=== PATIENT | female | born 1945 | race Caucasian/White ===

== ENCOUNTER 2023-07-15 14:05 | Inpatient (IN) | payer MEDICARE, OTHER ==
[~2023-07-15] VITALS: Ht 165.1 cm; Wt 58.5 kg
[2023-07-15 14:56] LABS: BASOPHILS % (AUTO) 0.4 % (0.0-2.0); EOSINOPHILS # (AUTO) 0.2 K/uL (0.0-0.7); EOSINOPHILS % (AUTO) 2.2 % (0.0-7.0); HEMATOCRIT 35.9 % (31.2-41.9); HEMOGLOBIN 11.7 g/dL (10.9-14.3); LYMPHOCYTES # (AUTO) 1.2 K/uL (0.8-4.8); LYMPHOCYTES % (AUTO) 17.2 % (20.5-51.5); MEAN CORPUSCULAR HEMOGLOBIN 30.1 uug (24.7-32.8); MEAN CORPUSCULAR HGB CONC 33 g/dL (32.3-35.6); MEAN CORPUSCULAR VOLUME 91.7 fL (75.5-95.3); MONOCYTES # (AUTO) 0.9 K/uL (0.1-1.30); MONOCYTES % (AUTO) 12.9 % (0.0-11.0); NEUTROPHILS # (AUTO) 4.8 K/uL (1.8-8.9); NEUTROPHILS % (AUTO) 67.3 % (38.5-71.5); PLATELET COUNT (AUTO) 224 K/uL (179-408); RED BLOOD CELL COUNT(AUTO) 3.91 MIL/uL (3.63-4.92); WHITE BLOOD COUNT (AUTO) 7.1 K/uL (3.8-11.8)
[2023-07-15 15:10] LABS: AMMONIA < 10 umol/L (11-32); ETHANOL < 3 MG/DL (0-10)
[2023-07-15 15:16] LABS: DIFFERENTIAL COMMENT 1
[2023-07-15 15:21] LABS: CALCIUM 8.8 mg/dL (8.5-10.1); CARBON DIOXIDE 28 mmol/L (21-32); CHLORIDE 104 mmol/L (98-107); CREATININE 0.7 mg/dL (0.6-1.3); GLUCOSE 94 mg/dL (74-106); POTASSIUM 4.2 mmol/L (3.5-5.1); SODIUM SERUM 141 mmol/L (136-145); UREA NITROGEN, BLOOD 20 mg/dL (7-18)
[2023-07-15 15:29] LABS: ALANINE AMINOTRANSFERASE 26 U/L (14-59); ALBUMIN 3.4 g/dL (3.4-5.0); ALKALINE PHOSPHATASE 77 U/L (50-136); ASPARTATE AMINOTRANSFERASE 13 U/L (15-37); BILIRUBIN,DIRECT 0.1 mg/dL (0.0-0.2); BILIRUBIN,TOTAL 0.3 mg/dL (0.2-1.0); TOTAL PROTEIN, SERUM 7.2 g/dL (6.4-8.2)
[2023-07-15] MEDS ORDERED: MAGNESIUM HYDROXIDE 30 ML LIQUID UDC PO PRN (17:30)
[2023-07-15] MEDS ORDERED: MAG HYDROX/AL HYDROX/SIMETH 30 ML LIQUID UDC PO PRN (17:30)
[2023-07-15] MEDS ORDERED: LORAZEPAM 0.5 MG TABLET PO PRN (17:30)
[2023-07-15 17:48] VITALS: BP 162/112; TEMP 98.2; O2SAT 98
[2023-07-15 20:00] VITALS: BP 144/88; TEMP 98.6; O2SAT 95
[2023-07-16 07:44] VITALS: BP 136/72; TEMP 98; O2SAT 98
[2023-07-16] MEDS: NICOTINE 21 MG/24HR PATCH TD SCH (08:41)
[2023-07-16 08:42] LABS: ALANINE AMINOTRANSFERASE 24 U/L (14-59); ALBUMIN 3.4 g/dL (3.4-5.0); ALKALINE PHOSPHATASE 80 U/L (50-136); ASPARTATE AMINOTRANSFERASE 13 U/L (15-37); BILIRUBIN,TOTAL 0.5 mg/dL (0.2-1.0); CALCIUM 8.5 mg/dL (8.5-10.1); CARBON DIOXIDE 29 mmol/L (21-32); CHLORIDE 104 mmol/L (98-107); CREATININE 0.8 mg/dL (0.6-1.3); GLUCOSE 88 mg/dL (74-106); SODIUM SERUM 141 mmol/L (136-145); TOTAL PROTEIN, SERUM 7.2 g/dL (6.4-8.2); UREA NITROGEN, BLOOD 17 mg/dL (7-18)
[2023-07-16] MEDS: risperiDONE 0.5 MG TABLET PO SCH ×2 (11:40→21:13)
[2023-07-16] MEDS: DIVALPROEX SPRINKLE 125 MG CAP.SPRINK PO SCH ×2 (12:18→16:42)
[2023-07-16 13:19] LABS: THYROID STIMULATING HORMONE 1.398 mIU/mL (0.358-3.740)
[2023-07-16 15:09] VITALS: BP 118/86; TEMP 98; O2SAT 98
[2023-07-16 20:13] VITALS: BP 134/76; TEMP 98.1; O2SAT 98
[2023-07-16] MEDS: REMEDY ESSENTIAL ZINC PASTE 113 GM TOP SCH (21:13)
[2023-07-17 08:06] VITALS: BP 114/72; TEMP 98.2; O2SAT 94
[2023-07-17] MEDS: risperiDONE 0.5 MG TABLET PO SCH (09:56)
[2023-07-17] MEDS: NICOTINE 21 MG/24HR PATCH TD SCH (09:56)
[2023-07-17] MEDS: DIVALPROEX SPRINKLE 125 MG CAP.SPRINK PO SCH ×3 (09:56→17:51)
[2023-07-17] MEDS: REMEDY ESSENTIAL ZINC PASTE 113 GM TOP SCH ×2 (09:57→21:07)
[2023-07-17 10:50] VITALS: BP 138/89; O2SAT 99
[2023-07-17 16:00] VITALS: BP 121/86; TEMP 98.6; O2SAT 100
[2023-07-17] MEDS: risperiDONE 1 MG TABLET PO SCH (21:06)
[2023-07-18 07:30] VITALS: BP 141/69; TEMP 97.7; O2SAT 97
[2023-07-18] MEDS: DIVALPROEX SPRINKLE 125 MG CAP.SPRINK PO SCH ×3 (09:02→16:57)
[2023-07-18] MEDS: risperiDONE 0.5 MG TABLET PO SCH (09:02)
[2023-07-18] MEDS: NICOTINE 21 MG/24HR PATCH TD SCH (09:03)
[2023-07-18] MEDS: REMEDY ESSENTIAL ZINC PASTE 113 GM TOP SCH ×2 (09:03→21:07)
[2023-07-18 15:51] VITALS: BP 119/78; TEMP 97.7; O2SAT 97
[2023-07-18 20:00] VITALS: BP 121/79; TEMP 98.3; O2SAT 97
[2023-07-18] MEDS: risperiDONE 1 MG TABLET PO SCH (21:10)
[2023-07-18] MEDS: LORAZEPAM 0.5 MG TABLET PO PRN (23:58)
[2023-07-19 07:30] VITALS: BP 151/87; TEMP 98.2; O2SAT 98
[2023-07-19] MEDS: NICOTINE 21 MG/24HR PATCH TD SCH (08:23)
[2023-07-19] MEDS: REMEDY ESSENTIAL ZINC PASTE 113 GM TOP SCH ×2 (08:23→20:05)
[2023-07-19] MEDS: risperiDONE 0.5 MG TABLET PO SCH (08:23)
[2023-07-19] MEDS: DIVALPROEX SPRINKLE 125 MG CAP.SPRINK PO SCH ×3 (08:25→16:23)
[2023-07-19] MEDS: LORAZEPAM 0.5 MG TABLET PO PRN ×2 (10:16→20:03)
[2023-07-19 16:00] VITALS: BP 133/88; TEMP 98; O2SAT 96
[2023-07-19] MEDS: risperiDONE 1 MG TABLET PO SCH ×2 (16:27→20:04)
[2023-07-19 20:00] VITALS: BP 131/79; TEMP 97.9; O2SAT 98
[2023-07-19] MEDS: ZOLPIDEM 5 MG TABLET PO PRN (23:29)
[2023-07-20] MEDS: LORAZEPAM 0.5 MG TABLET PO PRN ×2 (06:03→20:01)
[2023-07-20] MEDS ORDERED: risperiDONE 0.5 MG TABLET PO SCH (08:00)
[2023-07-20 08:12] VITALS: BP 130/88; TEMP 98; O2SAT 99
[2023-07-20] MEDS: NICOTINE 21 MG/24HR PATCH TD SCH (08:40)
[2023-07-20] MEDS: risperiDONE 1 MG TABLET PO SCH ×4 (08:40→20:01)
[2023-07-20] MEDS: DIVALPROEX SPRINKLE 125 MG CAP.SPRINK PO SCH ×4 (08:40→20:01)
[2023-07-20] MEDS: REMEDY ESSENTIAL ZINC PASTE 113 GM TOP SCH ×2 (08:41→20:02)
[2023-07-20 16:06] VITALS: BP 128/80; TEMP 98.3; O2SAT 98
[2023-07-20 20:00] VITALS: BP 140/83; TEMP 98; O2SAT 98
[2023-07-20] MEDS: ZOLPIDEM 5 MG TABLET PO PRN (22:36)
[2023-07-21] MEDS: LORAZEPAM 0.5 MG TABLET PO PRN ×2 (04:45→10:58)
[2023-07-21 08:04] VITALS: BP 118/66; TEMP 98.1; O2SAT 98
[2023-07-21] MEDS: risperiDONE 1 MG TABLET PO SCH ×4 (08:16→20:34)
[2023-07-21] MEDS: REMEDY ESSENTIAL ZINC PASTE 113 GM TOP SCH ×2 (08:16→20:32)
[2023-07-21] MEDS: NICOTINE 21 MG/24HR PATCH TD SCH (08:16)
[2023-07-21] MEDS: DIVALPROEX SPRINKLE 125 MG CAP.SPRINK PO SCH ×4 (08:16→20:33)
[2023-07-21 16:30] VITALS: BP 160/91; TEMP 98; O2SAT 99
[2023-07-21 19:54] VITALS: BP 136/69; TEMP 98.1; O2SAT 96
[2023-07-21] MEDS: ZOLPIDEM 5 MG TABLET PO PRN (21:59)
[2023-07-22] MEDS: LORAZEPAM 0.5 MG TABLET PO PRN (03:30)
[2023-07-22 07:53] VITALS: BP 139/82; TEMP 98; O2SAT 97
[2023-07-22] MEDS: NICOTINE 21 MG/24HR PATCH TD SCH (08:31)
[2023-07-22] MEDS: REMEDY ESSENTIAL ZINC PASTE 113 GM TOP SCH ×2 (08:32→20:42)
[2023-07-22] MEDS: DIVALPROEX SPRINKLE 125 MG CAP.SPRINK PO SCH ×4 (08:32→20:41)
[2023-07-22] MEDS: risperiDONE 1 MG TABLET PO SCH ×3 (08:32→17:48)
[2023-07-22 16:12] VITALS: BP 148/79; TEMP 98; O2SAT 98
[2023-07-22 19:52] VITALS: BP 165/80; TEMP 98.1; O2SAT 96
[2023-07-22] MEDS: risperiDONE 2 MG TABLET PO SCH (20:41)
[2023-07-22] MEDS ORDERED: risperiDONE 1 MG TABLET PO SCH (21:00)
[2023-07-22] MEDS: ZOLPIDEM 5 MG TABLET PO PRN (23:02)
[2023-07-23 07:30] VITALS: BP 142/80; TEMP 97.7; O2SAT 96
[2023-07-23] MEDS: NICOTINE 21 MG/24HR PATCH TD SCH (08:25)
[2023-07-23] MEDS: DIVALPROEX SPRINKLE 125 MG CAP.SPRINK PO SCH ×4 (08:25→20:40)
[2023-07-23] MEDS: risperiDONE 1 MG TABLET PO SCH ×3 (08:25→16:28)
[2023-07-23] MEDS: REMEDY ESSENTIAL ZINC PASTE 113 GM TOP SCH ×2 (08:26→20:42)
[2023-07-23 16:25] VITALS: BP 148/80; TEMP 97.9; O2SAT 97
[2023-07-23 19:46] VITALS: BP 146/76; TEMP 98; O2SAT 96
[2023-07-23] MEDS: risperiDONE 2 MG TABLET PO SCH (20:40)
[2023-07-24] MEDS: LORAZEPAM 0.5 MG TABLET PO PRN (00:48)
[2023-07-24 08:00] VITALS: BP 140/88; TEMP 98.2; O2SAT 97
[2023-07-24] MEDS: risperiDONE 1 MG TABLET PO SCH ×3 (08:26→16:38)
[2023-07-24] MEDS: DIVALPROEX SPRINKLE 125 MG CAP.SPRINK PO SCH ×4 (08:29→20:27)
[2023-07-24] MEDS: REMEDY ESSENTIAL ZINC PASTE 113 GM TOP SCH ×2 (08:50→20:27)
[2023-07-24] MEDS: NICOTINE 21 MG/24HR PATCH TD SCH (08:53)
[2023-07-24 16:00] VITALS: BP 124/61; TEMP 99.4; O2SAT 99
[2023-07-24 20:00] VITALS: BP 126/70; TEMP 98; O2SAT 96
[2023-07-24] MEDS: risperiDONE 2 MG TABLET PO SCH (20:27)
[2023-07-24] MEDS: ZOLPIDEM 5 MG TABLET PO PRN (21:39)
[2023-07-25] MEDS: LORAZEPAM 0.5 MG TABLET PO PRN ×2 (03:26→15:41)
[2023-07-25 07:30] VITALS: BP 138/78; TEMP 98.1; O2SAT 99
[2023-07-25] MEDS: DIVALPROEX SPRINKLE 125 MG CAP.SPRINK PO SCH ×4 (09:13→20:48)
[2023-07-25] MEDS: NICOTINE 21 MG/24HR PATCH TD SCH (09:13)
[2023-07-25] MEDS: risperiDONE 1 MG TABLET PO SCH ×3 (09:13→16:29)
[2023-07-25] MEDS: REMEDY ESSENTIAL ZINC PASTE 113 GM TOP SCH ×2 (09:14→20:45)
[2023-07-25 16:00] VITALS: BP 132/83; TEMP 97.7; O2SAT 99
[2023-07-25 20:00] VITALS: BP 125/94; TEMP 97.9; O2SAT 97
[2023-07-25] MEDS: risperiDONE 2 MG TABLET PO SCH (20:48)
[2023-07-26] MEDS: ZOLPIDEM 5 MG TABLET PO PRN (00:29)
[2023-07-26 07:30] VITALS: BP 140/78; TEMP 97.8; O2SAT 98
[2023-07-26] MEDS: risperiDONE 1 MG TABLET PO SCH (08:36)
[2023-07-26] MEDS: NICOTINE 21 MG/24HR PATCH TD SCH (08:36)
[2023-07-26] MEDS: DIVALPROEX SPRINKLE 125 MG CAP.SPRINK PO SCH (08:36)
[2023-07-26] MEDS: REMEDY ESSENTIAL ZINC PASTE 113 GM TOP SCH (08:37)
== END 2023-07-26 11:45 | DRG 885 ==
LOC: ER 14:05 → GPS 16:50
PROVIDERS: ADMIT Psychiatry & Neurology Psychosomatic Medicine; ATTEND Nurse Practitioner Acute Care
DX: F31.9 Bipolar disorder, unspecified (principal); R45.851 Suicidal ideations; F25.9 Schizoaffective disorder, unspecified; I25.2 Old myocardial infarction; F15.10 Other stimulant abuse, uncomplicated; F60.9 Personality disorder, unspecified; F19.10 Other psychoactive substance abuse, uncomplicated; Z59.00 Homelessness unspecified; Z95.5 Presence of coronary angioplasty implant and graft; Z88.6 Allergy status to analgesic agent; Z88.8 Allergy status to other drugs, medicaments and biological substances; I25.10 Atherosclerotic heart disease of native coronary artery without angina pectoris; F17.210 Nicotine dependence, cigarettes, uncomplicated; T25.022A Burn of unspecified degree of left foot, initial encounter; T23.002A Burn of unspecified degree of left hand, unspecified site, initial encounter; T22.00XA Burn of unspecified degree of shoulder and upper limb, except wrist and hand, unspecified site, initial encounter; X08.8XXA Exposure to other specified smoke, fire and flames, initial encounter; Y93.G3 Activity, cooking and baking; Y92.89 Other specified places as the place of occurrence of the external cause; Z90.5 Acquired absence of kidney; F12.10 Cannabis abuse, uncomplicated
CPT/HCPCS: 36415; 71045; 80164; 84443; 84484; 85025; 85730; 93005; G0480